=== PATIENT | female | born 1985 | race Caucasian/White ===

== ENCOUNTER 2017-05-18 17:21 | Emergency (ER) | payer OTHER, SELFPAY ==
[2017-05-18 17:22] VITALS: BP 126/60; PULSE 98; RESP 16; TEMP 36.5; O2SAT 100; BMI 25.0
[2017-05-18 17:33] VITALS: RESP 16
[2017-05-18] MEDS: 0.9% Normal Saline 1,000 ML 1000 ML IV (17:55)
[2017-05-18] MEDS: Ondansetron 4 MG/2 ML Vial IV (17:55)
[2017-05-18 18:11] LABS: Absolute Lymphocyte Count 0.44 X10^3/ul (0.83-4.51); Basophil# 0.01 X10^3/uL; Basophil% 0.1 % (0-1); Eosinophil# 0.02 X10^3/uL; Eosinophils% 0.2 % (0-5); Hematocrit 42.5 % (37-47); Hemoglobin 14.9 g/dl (12.0-15.0); Lymphocyte # 0.44 X10^3/ul (4.0); Lymphocyte % 3.7 % (19-41); Mean Corp Hgb Conc 35.1 g/gl (32-36); Mean Corpuscular Hgb 30.9 pg (27.0-32.0); Mean Corpuscular Volume 88.2 fL (81-99); Mean Platelet Vol. 11.5 fl (6.2-12.0); Monocyte# 0.49 X10^3/uL; Monocyte% 4.1 % (0-10); Neutrophil # 11.02 X10^3/uL (2.7-7.7); Neutrophil % 91.7 % (47-70); Platelet Count 168 K/mm3 (150-450); RBC Distribution Width CV 11.9 % (11.6-14.6); RBC Distribution Width SD 37.4 fl (35.1-43.9); Red Blood Count 4.82 M/mm3 (4.2-5.4)
[2017-05-18 18:19] LABS: Anion Gap 9 (5-15); BUN 13 mg/dL (7-18); BUN/Creat Ratio 15.3 RATIO (10-20); Calcium,Total 8.9 mg/dL (8.5-10.1); Chloride 102 mmol/L (98-107); Creatinine, Serum 0.85 mg/dL (0.55-1.02); EST Glomerular Filtration Rate 84 mL/min (>60); Est Glom Filt Rate - Afr Amer 101 mL/min (>60); Estimated Creatinine Clearance 94.97 ml/min; Glucose 111 mg/dL (70-110); Potassium 3.9 mmol/L (3.5-5.1); Sodium Level 135 mmol/L (136-145)
[2017-05-18 18:24] LABS: Differential Indicated SCAN CRITERIA MET; POSITIVE COUNT NO; POSITIVE DIFFERENTIAL YES; POSITIVE MORPHOLOGY NO
[2017-05-18 18:27] LABS: Differential Comment SCANNED
--- NOTE | 2017-05-18 19:00 | ED.DCSUM_ITS ---
- ER Visit Summary Date of Service: 05/18/17 Chief Complaint: Nausea and vomiting History of Present Illness: The patient is a 31 F who is currently 8 weeks . Patient was sent over by her OBs office for IV fluids. She has had nausea and vomiting for the past 3 days. She has noted that she is not urinating as frequently. She has had some mild chills but no fever. She denies cough or congestion. Physical Examination: Vital signs are unremarkable. Patient sitting upright in bed no acute distress. Head and neck examination is normal. Heart is regular rate and rhythm. Palpable pulses are noted throughout. Lungs are clear with good air movement throughout. Abdomen is soft and nontender. Hypoactive bowel sounds are noted. Extremity examination is unremarkable with full range of motion. Neurologic examination reveals no focal deficits. Test Results: CBC was a white count 12.0 with 91% neutrophils. Chemistry studies are unremarkable. Patient reports her urine was checked at the office and was noted of ketones but no sign of infection. Emergency Department Course and Treatment: Patient was given a liter of IV fluids and Zofran here. On repeat evaluation she feels significantly improved. She is tolerating p.o. She be given a prescription for Zofran. Treatment Plan: [] Disposition: Discharge Impression: 1. Vomiting, improved 2. First trimester This note was generated with [employer] dictation software. It may contain incorrect words, spelling, and punctuation that were not noted in review of the chart prior to signing ED Disposition - Plan for ED Patient: Disposition: Home or Assisted Living Chief Complaint: Nausea/Vomiting Instructions: ED Nausea Vomiting Prescriptions: Ondansetron [Zofran Odt] 4 mg PO Q8H PRN PRN #10 tablet PRN Reason: Nausea Referrals: Nicole Eid [STAFF PHYSICIAN] - 3-5 Days if not improving Scooter Aldana [Primary Care Provider] -
--- NOTE | 2017-05-18 19:00 | ED.DEP ---
ED Disposition - Plan for ED Patient: Disposition: Home or Assisted Living Chief Complaint: Nausea/Vomiting Instructions: ED Nausea Vomiting Prescriptions: Ondansetron [Zofran Odt] 4 mg PO Q8H PRN PRN #10 tablet PRN Reason: Nausea Referrals: Scooter Aldana [Primary Care Provider] - Nicole Eid [STAFF PHYSICIAN] - 3-5 Days if not improving
[2017-05-18 19:15] VITALS: BP 117/75; PULSE 71; RESP 16; O2SAT 100
--- NOTE | 2017-05-18 19:25 | ED.RN ---
REVIEWED D/C INSTRUCTIONS, FOLLOW UP CARE, PRESCRIPTION, AND S/S THAT WOULD WARRANT A RETURN TO THE ED WITH PT. PT VERBALIZED AN UNDERSTANDING AND DENIES FURTHER QUESTIONS FOR THIS RN. PT SKIN P/W/D, RESP EVEN AND UNLABORED, PT A&O X 3, NO DISTRESS NOTED. PT AMBULATED OUT OF ED, GAIT STEADY.
== END 2017-05-18 19:26 | disposition home or self-care (01) ==
PROVIDERS: Emergency Provider Emergency Medicine; Family Provider Physician Assistant; PCP Physician Assistant
DX: O26.891 Other specified pregnancy related conditions, first trimester (principal); R11.2 Nausea with vomiting, unspecified; Z3A.08 8 weeks gestation of pregnancy; Z79.899 Other long term (current) drug therapy
CPT/HCPCS: 80048; 85025; 96361; 96374; 99283; J7030; A4216; J2405

== ENCOUNTER → 2017-10-26 12:40 | Outpatient (CLI) | payer OTHER, SELFPAY ==
--- NOTE | 2017-10-26 12:50 | ECHOD_ITS ---
Reason For Study: PVC Procedure This was a 2D Doppler, Color Flow transthoracic echocardiogram. Exam performed in department. Left Ventricle Normal LV size. Left ventricular systolic function is normal. The estimated ejection fraction is 55 %. No evidence for diastolic dysfunction. No regional wall motion abnormalities noted. Right Ventricle Normal RV size. Normal systolic function. Atria The left atrium is mildly enlarged. Normal right atrium. Mitral Valve Normal mitral valve. Tricuspid Valve Normal tricuspid valve. Mild (1+) tricuspid valve insufficiency. Pulmonary artery systolic pressure is 25 mmHg. Aortic Valve Normal aortic valve. Trisinus/trileaflet aortic valve. Great Vessels Normal aortic root. The pulmonary artery is normal size. Normal inferior vena cava. Pericardium/Pleural No pericardial effusion. MMode/2D Measurements & Calculations LVIDd: 5.4 cm IVSd: 0.83 cm Ao root diam: 2.9 cm LVIDs: 3.6 cm LVPWd: 0.88 cm LA dimension: 3.5 cm RVDd: 3.0 cm FS: 32.5 % LAV(MOD-bp): 76.3 ml EDV(MOD-sp4): 142.5 ml SV(MOD-sp4): 82.7 ml LAV(MOD-bp) Indexed: 39.8 ml/m2 ESV(MOD-sp4): 59.8 ml LAV(MOD-sp2): 59.7 ml EF(MOD-sp4): 58.0 % LAV(MOD-sp4): 74.3 ml LA A4 area: 25.1 cm2 RA A4 area: 19.2 cm2 Time Measurements MV dec time: 0.30 sec Doppler Measurements & Calculations MV E max elgin: 76.6 cm/sec Lat Peak E' Elgin: 18.6 cm/sec Med Peak E' Elgin: 12.4 cm/sec MV A max elgin: 51.8 cm/sec E/E' lat: 4.1 E/E' med: 6.2 MV E/A: 1.5 Ao V2 max: 193.0 cm/sec LV V1 max: 141.3 cm/sec PA V2 max: 121.8 cm/sec Ao max P.9 mmHg LV V1 max P.0 mmHg PI end-d elgin: 75.1 cm/sec TR max elgin: 237.6 cm/sec TR max P.6 mmHg Interpretation Summary Normal LV size. Left ventricular systolic function is normal. The estimated ejection fraction is 55 %. No evidence for diastolic dysfunction. Mild (1+) tricuspid valve insufficiency. Cardiac dysrhytmia noted. Ordering Physician: Raleigh Carmona Referring Physician: Raleigh Carmona Performed By: Mallorie Helms RDCS
== END ==
PROVIDERS: Visit Provider Internal Medicine Cardiovascular Disease
DX: I49.3 Ventricular premature depolarization (principal)
CPT/HCPCS: 93225; 93226; 93306

== ENCOUNTER 2017-12-18 23:50 | Outpatient (CLI) | payer OTHER, SELFPAY ==
[2017-12-19 00:08] VITALS: BMI 29.0
[2017-12-19 00:47] LABS: ROM Internal Control Test YES-OK TO RESULT pt. (Internal QC)
[2017-12-19 00:48] LABS: ROM Patient Test Negative (Negative)
--- NOTE | 2017-12-26 10:53 | OB.TRI.NOTE ---
History of Present Illness Date of Service: 12/19/17 Was patient seen by the physician?: No Reason For Visit: R/O LABOR Allergies No Known Allergies Allergy (Verified 12/19/17 00:09) - Pertinent Past Medical History Medical History: Past Medical History (Last Reviewed 08/18/17 @ 13:53 by Raleigh Carmona MD) Hypothyroidism (Chronic) Cardiac dysrhythmia, unspecified (Acute) Palpitations (Acute) Premature ventricular contraction (Acute) Nonrheumatic tricuspid (valve) insufficiency (Chronic) Surgical History: Past Surgical History (Last Reviewed 08/18/17 @ 13:53 by Raleigh Carmona MD) History of removal of cyst NST - FHR Rate Baby A Baseline: 130 Variability:: Moderate Accelerations:: 15 x 15 Decelerations:: Variable NST Reactive:: Yes Uterine Activity:: Irregular Impression/Plan Reactive NST for false labor
== END 2017-12-19 01:20 | disposition home or self-care (01) ==
LOC: WPOUT 12-19 00:18 → WP 12-19 00:19
PROVIDERS: Visit Provider Obstetrics & Gynecology
DX: O47.9 False labor, unspecified (principal); Z3A.00 Weeks of gestation of pregnancy not specified
CPT/HCPCS: 59025; 59050; 84112; 99218; G0378

== ENCOUNTER 2017-12-28 15:25 | Inpatient (IN) | payer OTHER, SELFPAY ==
[2017-12-28 15:34] VITALS: BMI 29.2
[2017-12-28] MEDS: Lactated Ringers 1,000 ML 50 ML IV (15:45)
[2017-12-28 16:24] LABS: Hematocrit 37.4 % (37-47); Hemoglobin 12.6 g/dl (12.0-15.0); Mean Corp Hgb Conc 33.7 g/gl (32-36); Mean Corpuscular Hgb 31.3 pg (27.0-32.0); Mean Corpuscular Volume 92.8 fL (81-99); Mean Platelet Vol. 12.3 fl (6.2-12.0); Platelet Count 138 K/mm3 (150-450); RBC Distribution Width CV 12.4 % (11.6-14.6); RBC Distribution Width SD 41.8 fl (35.1-43.9); Red Blood Count 4.03 M/mm3 (4.2-5.4); White Blood Count 8.3 K/mm3 (4.4-11.0)
[2017-12-28 16:30] LABS: Scan Indicated on CBC? Y/N NO
[2017-12-28] MEDS: Oxytocin 30 units/NS 500 ml 30 UNITS/500 ML IV.SOLN 334 UNITS IV (17:08)
[2017-12-28] MEDS: HYDROmorphone 1 MG/ML Syringe IV (17:30)
[2017-12-28] MEDS: Oxytocin 30 units/NS 500 ml 30 UNITS/500 ML IV.SOLN 167 UNITS IV (17:35)
--- NOTE | 2017-12-28 18:29 | HP.PCM_ITS ---
- Problem List (1) Active labor Status: Acute History Date of Admission: 12/28/17 Final COLLIN: 12/28/17 Final COLLIN Source: US <20 weeks Gestational age: 40 Weeks and 0 Days History of this : This is a 32 year-old at 40w0d who presented to the office for a routine visit with regular painful contractions. Her cervix was found to be 6/80/-2 with bulging bag of membranes in the office. The patient was then sent over to labor and delivery given active labor. Medical History: Medical History (Last Reviewed 08/18/17 @ 13:53 by Raleigh Carmona MD) Hypothyroidism (Chronic) E03.9 Cardiac dysrhythmia, unspecified (Acute) I49.9 Palpitations (Acute) R00.2 Premature ventricular contraction (Acute) I49.3 Nonrheumatic tricuspid (valve) insufficiency (Chronic) I36.1 Surgical History: Surgical History (Last Reviewed 08/18/17 @ 13:53 by Raleigh Carmona MD) History of removal of cyst Z98.890 Allergies No Known Allergies Allergy (Verified 12/19/17 00:09) Home Medications: Home Medications Vits [Prenatabs FA ] 1 tab PO DAILY 12/28/13 levothyroxine 125 mcg capsule 125 mcg PO QDAY cap 07/24/17 Smoking Status: Never smoker Alcohol: None Number of Fetus(es): 1 Heart Tracing: Category 1 History Past Pregnancies: Past Pregnancies Delivery Date Name GA/Weeks Outcome Route Weight Infant Gender Labor Length Anesthesia Delivery Location Provider FOB term 7lb term 7lb Labs: GBS pos, Rh pos, RI, HepB neg, HIV NR Expected Delivery Method: Spontaneous Vaginal Review of Systems Constitutional: Denies: Fever Gastrointestinal: Denies: Abdominal Pain Gynecological: Reports: - - No VB, LOF Physical Exam General: Alert, Oriented x3 HEENT: Atraumatic Abdomen: Soft, Non Tender, Gravid Neurological: Neuro grossly intact 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 She was sent over to labor and delivery for management of active labor. Known GBS bacteria so penicillin started. Epidural prn for pain control. Expectant management to allow for antibiotic time given GBS positive status.
--- NOTE | 2017-12-28 18:30 | PCM.OB.VAG ---
- Problem List (1) Active labor Status: Acute Vaginal Delivery Maternal Presentation: Active Labor Amniotic Membrane Rupture Type: Artificial Amniotic Fluid Description: Clear Final COLLIN: 12/28/17 Gestational age: 40 Weeks and 0 Days Date of Procedure: 12/28/17 Pre-Operative Diagnosis: active labor Post-Operative Diagnosis: active labor Surgery/ Procedure Performed: Spontaneous Vaginal Delivery Type of Anesthesia: Local with 1% lidocaine Description of Procedure: Patient progressed quickly in labor. Was complete and pushing prior to complete antibiotic time. Patient pushing and amniotomy performed for clear fluid. Head, anterior shoulder, and posterior shoulder delivered without force or delay. Nuchal cord x 1. Viable male delivered and placed on mother's abdomen. Cord was clamped and cut after 60nd delay. Placenta was delivered with gentle fundal massage and maternal pushing. Placenta was noted to be intact. Rectal exam was performed, and a 4th degree laceration noted. 1% lidocaine was injected. The apex of the rectal mucosa was identified and closed in a running fashion using 3-0 chromic. The external anal sphincter was then identified, and closed with 3-0 vicryl using 4 interrupted sutures in an end-to-end fashion. The remaining 2nd degree laceration was repaired in usual fashion with 3-0 vicryl. Fundus firm and bleeding hemostatic. EBL 400 cc. Presentation: Vertex Placental Delivery Description: Spontaneous Cord Vessel Description: 3 Vessels Cord Entanglement: Around neck x 1, loose Estimated Blood Loss: 400 Infant A gender: Male Laceration: 4th Degree Medications given after delivery: IV Pitocin
--- NOTE | 2017-12-28 18:38 | OP.PCM_ITS ---
- Problem List (1) Active labor Status: Acute Vaginal Delivery Maternal Presentation: Active Labor Amniotic Membrane Rupture Type: Artificial Amniotic Fluid Description: Clear Final COLLIN: 12/28/17 Gestational age: 40 Weeks and 0 Days Date of Procedure: 12/28/17 Pre-Operative Diagnosis: active labor Post-Operative Diagnosis: active labor Surgery/ Procedure Performed: Spontaneous Vaginal Delivery Type of Anesthesia: Local with 1% lidocaine Description of Procedure: Patient progressed quickly in labor. Was complete and pushing prior to complete antibiotic time. Patient pushing and amniotomy performed for clear fluid. Head, anterior shoulder, and posterior shoulder delivered without force or delay. Nuchal cord x 1. Viable male delivered and placed on mother's abdomen. Cord was clamped and cut after 60nd delay. Placenta was delivered with gentle fundal massage and maternal pushing. Placenta was noted to be intact. Rectal exam was performed, and a 4th degree laceration noted. 1% lidocaine was injected. The apex of the rectal mucosa was identified and closed in a running fashion using 3-0 chromic. The external anal sphincter was then identified, and closed with 3-0 vicryl using 4 interrupted sutures in an end-to- end fashion. The remaining 2nd degree laceration was repaired in usual fashion with 3-0 vicryl. Fundus firm and bleeding hemostatic. EBL 400 cc. Presentation: Vertex Placental Delivery Description: Spontaneous Cord Vessel Description: 3 Vessels Cord Entanglement: Around neck x 1, loose Estimated Blood Loss: 400 A gender: Male Laceration: 4th Degree Medications given after delivery: IV Pitocin
[2017-12-28] MEDS: Ibuprofen 600 MG Tablet PO (20:21)
[2017-12-28] MEDS: Dibucaine 30 GM Tube 1 APPLIC TOPICAL (20:23)
[2017-12-28] MEDS: Ondansetron 4 MG/2 ML Vial IV (20:23)
[2017-12-28] MEDS: 0.9% Saline Lock 10 ML Syringe IV (20:23)
[2017-12-28] MEDS: Docusate Sodium 100 MG Capsule PO (22:32)
[2017-12-29 00:50] VITALS: BP 114/65; PULSE 40; RESP 18; TEMP 36.4
[2017-12-29 04:00] VITALS: BP 121/59; PULSE 41; RESP 18; TEMP 36.3
[2017-12-29] MEDS: Ibuprofen 600 MG Tablet PO ×4 (04:00→22:00)
--- NOTE | 2017-12-29 04:26 | PCM.DCVAG ---
Discharge Diet: No Restrictions Discharge Activity: Return to Normal Activity, May not drive while taking narcotic pain medications., May Shower May resume sexual activity in: 6 weeks Weight Bearing Status: Weight bearing as tolerated Call your doctor if you observe: Fever of 101 or Higher, Inability to urinate, Inability to have a bowel movement, Using more than one pad per hour, Shortness of breath, Chest pain, Calf discomfort, Uncontrolled pain Additional Instructions: Continue to take stool softeners for 6 weeks. Take Colace 100mg twice daily. You can also take Miralax once daily. If you experience any of the following, contact your healthcare provider. Bleeding that soaks a pad every hour for 2 hours Fever 100.4 or higher Unrelieved incision or abdominal pain Swelling, redness, discharge or bleeding from your incision or episiotomy site Your incision begins to separate Problems urinating (including inability to urinate or burning while urinating). Visual changes Severe headache Flu-like symptoms Pain or redness in one of both of your breasts Pain, warmth, tenderness or swelling in your legs, especially the calf area Frequent nausea and vomiting Symptoms of depression or anxiety If you experience any of the following, call 911 or go to the nearest Emergency Room. Chest pain Problems breathing Seizure activity Partial or complete paralysis of a body part, slurred speech, weakness or drooping of the face, or a sudden inability to walk or hold your balance Allergies/Adverse Reactions: Allergies No Known Allergies Allergy (Verified 12/19/17 00:09) Medications to take at Discharge Vits [Prenatabs FA ] 1 tab PO DAILY 12/28/13 levothyroxine 125 mcg capsule 125 mcg PO QDAY cap 07/24/17 When: Follow up in 2 weeks and 6 weeks for visits. Primary Care Physician: Care Physician,No Primary [Primary Care Provider] - Test Results: Test results from this visit will be discussed in further detail at your follow-up appointment, if applicable.
--- NOTE | 2017-12-29 04:30 | DCINST_ITS ---
Discharge Diet: No Restrictions Discharge Activity: Return to Normal Activity, May not drive while taking narcotic pain medications., May Shower May resume sexual activity in: 6 weeks Weight Bearing Status: Weight bearing as tolerated Call your doctor if you observe: Fever of 101 or Higher, Inability to urinate, Inability to have a bowel movement, Using more than one pad per hour, Shortness of breath, Chest pain, Calf discomfort, Uncontrolled pain Additional Instructions: Continue to take stool softeners for 6 weeks. Take Colace 100mg twice daily. You can also take Miralax once daily. If you experience any of the following, contact your healthcare provider. * Bleeding that soaks a pad every hour for 2 hours * Fever 100.4 or higher * Unrelieved incision or abdominal pain * Swelling, redness, discharge or bleeding from your incision or episiotomy site * Your incision begins to separate * Problems urinating (including inability to urinate or burning while urinating) . * Visual changes * Severe headache * Flu-like symptoms * Pain or redness in one of both of your breasts * Pain, warmth, tenderness or swelling in your legs, especially the calf area * Frequent nausea and vomiting * Symptoms of depression or anxiety If you experience any of the following, call 911 or go to the nearest Emergency Room. * Chest pain * Problems breathing * Seizure activity * Partial or complete paralysis of a body part, slurred speech, weakness or drooping of the face, or a sudden inability to walk or hold your balance Allergies/Adverse Reactions: Allergies No Known Allergies Allergy (Verified 12/19/17 00:09) Medications to take at Discharge Vits [Prenatabs FA ] 1 tab PO DAILY 12/28/13 levothyroxine 125 mcg capsule 125 mcg PO QDAY cap 07/24/17 When: Follow up in 2 weeks and 6 weeks for visits. Primary Care Physician: Care Physician,No Primary [Primary Care Provider] - Test Results: Test results from this visit will be discussed in further detail at your follow- up appointment, if applicable.
--- NOTE | 2017-12-29 07:01 | PN.OBGYN_ITS ---
Patient Problems: Active and Suspected Problems (Last Reviewed 08/18/17 @ 13:53 by Raleigh Carmona MD ) Active labor (Acute) Subjective: Patient doing well. Pain controlled. Had dinner last night with some nausea, no emesis. Nausea now resolved. Normal lochia. Ambulating and voiding without difficulty. Denies fevers, CP, SOB, lightheadedness, calf pain. - Physical Exam General: Alert, Oriented x3 HEENT: Atraumatic Lungs: - - No increased resp effort Abdomen: Soft, Non Tender, - - Fundus firm at U Extremities: No Calf Tenderness Skin: No rashes Neurological: Neuro grossly intact Psych/Mental Status: Normal Affect Vital Signs Temp Pulse Resp BP 97.3 F L 41 L 18 121/59 H 12/29/17 04:00 12/29/17 04:00 12/29/17 04:00 12/29/17 04:00 Weight: 186 lb 8.177 oz Body Mass Index (BMI) 29.2 Intake and Output for Last 24 Hours 12/27/17 12/28/17 12/29/17 23:59 23:59 23:59 Intake Total 1456 / 1456 Output Total 600 / 600 Balance 1456 / 1456 -600 / -600 Laboratory Tests Past 24 Hrs 12/28/17 12/28/17 15:45 15:45 WBC 8.3 RBC 4.03 L Hgb 12.6 Hct 37.4 MCV 92.8 MCH 31.3 MCHC 33.7 RDW 12.4 RDW Differential 41.8 Plt Count 138 L MPV 12.3 H Blood Type B POSITIVE Antibody Screen NEGATIVE Medical Necessity - Tobacco Use Smoking Status: Never smoker Assessment/Plan All Active Problems (Last Reviewed 08/18/17 @ 13:53 by Raleigh Carmona MD) Active labor (Acute) Cardiac dysrhythmia, unspecified (Acute) Palpitations (Acute) Premature ventricular contraction (Acute) day #1 s/p after presenting in active labor. - Doing well - AF, VSS - - Reviewed importance of stool softeners with 4th degree tear, as well as home care. Discussed risk for incontinence of stool and/or flatulence. Will send rx for oxycodone given degree of laceration - Dispo: Pt would prefer to stay another day. Routine care. D/c home tomorrow if stable
[2017-12-29 08:05] VITALS: BP 121/87; PULSE 77; RESP 17; TEMP 36.2; O2SAT 98
[2017-12-29] MEDS: Levothyroxine 125 MCG Tablet PO (08:08)
[2017-12-29] MEDS: Docusate Sodium 100 MG Capsule PO ×2 (10:01→22:02)
[2017-12-29] MEDS: Polyethylene Glycol 3350 17 GM PACKET PO (10:01)
[2017-12-29 11:40] VITALS: BP 111/70; PULSE 71; RESP 16; TEMP 36.4; O2SAT 98
[2017-12-29] MEDS: Sertraline 50 MG Tablet 25 MG PO (15:06)
[2017-12-29 15:45] VITALS: BP 104/63; PULSE 79; RESP 15; TEMP 36.4; O2SAT 98
[2017-12-29 20:15] VITALS: BP 125/77; PULSE 42; RESP 16; TEMP 36.6
[2017-12-30 02:00] VITALS: BP 116/70; PULSE 48; RESP 16; TEMP 36.1
[2017-12-30] MEDS: Ibuprofen 600 MG Tablet PO ×2 (04:15→10:51)
[2017-12-30] MEDS: Levothyroxine 125 MCG Tablet PO (07:16)
[2017-12-30 08:00] VITALS: BP 126/81; PULSE 78; RESP 16; TEMP 36.6; O2SAT 99
[2017-12-30] MEDS: Polyethylene Glycol 3350 17 GM PACKET PO (08:47)
[2017-12-30] MEDS: Docusate Sodium 100 MG Capsule PO (08:47)
[2017-12-30] MEDS: Sertraline 50 MG Tablet 25 MG PO (08:47)
--- NOTE | 2017-12-30 13:09 | PN.OBGYN_ITS ---
Patient Problems: Active and Suspected Problems (Last Reviewed 08/18/17 @ 13:53 by Raleigh Carmona MD ) Active labor (Acute) Subjective: pain well controlled, average lochia. Stool softeners are helping. going well. - Physical Exam General: Alert, Cooperative, No apparent distress Vital Signs Temp Pulse Resp BP Pulse Ox 97.9 F 78 16 126/81 H 99 12/30/17 08:00 12/30/17 08:00 12/30/17 08:00 12/30/17 08:00 12/30/17 08:00 Oxygen Delivery Method Room Air Weight: 84.6 kg Body Mass Index (BMI) 29.2 Intake and Output for Last 24 Hours 12/28/17 12/29/17 12/30/17 23:59 23:59 23:59 Intake Total 1456 / 1456 Output Total 600 / 600 Balance 1456 / 1456 -600 / -600 Medical Necessity - Tobacco Use Smoking Status: Never smoker Assessment/Plan All Active Problems (Last Reviewed 08/18/17 @ 13:53 by Raleigh Carmona MD) Active labor (Acute) Cardiac dysrhythmia, unspecified (Acute) Palpitations (Acute) Premature ventricular contraction (Acute) PPD#2 s/p w/ 4th degree laceration ready for d/c home. D/w her stool softener use. F/u in office in 1-2 and 6 weeks or prn
[2017-12-30 14:00] VITALS: BP 120/70; PULSE 74; RESP 17; TEMP 36.7; O2SAT 99
== END 2017-12-30 14:35 | disposition home or self-care (01) | DRG 774 ==
PROVIDERS: Admitting Provider Obstetrics & Gynecology; Visit Provider Obstetrics & Gynecology
DX: O48.0 Post-term pregnancy (principal); O98.82 Other maternal infectious and parasitic diseases complicating childbirth; O70.4 Anal sphincter tear complicating delivery, not associated with third degree laceration; Z3A.40 40 weeks gestation of pregnancy; O99.284 Endocrine, nutritional and metabolic diseases complicating childbirth; E03.9 Hypothyroidism, unspecified; B95.1 Streptococcus, group B, as the cause of diseases classified elsewhere; O69.81X0 Labor and delivery complicated by cord around neck, without compression, not applicable or unspecified; Z37.0 Single live birth; Z79.899 Other long term (current) drug therapy
CPT/HCPCS: 59050; 85027; 86850; 86900; 99218; J7120; A4216; G0378; J2405

== ENCOUNTER → 2018-02-21 11:07 | Outpatient (CLI) | payer OTHER, SELFPAY | PROVIDERS: Referring Provider Internal Medicine Cardiovascular Disease; Visit Provider Internal Medicine Cardiovascular Disease | DX: I49.3 Ventricular premature depolarization (principal) | CPT/HCPCS: 93225; 93226 ==

== ENCOUNTER → 2018-09-18 | Outpatient (CLI) | payer OTHER, SELFPAY ==
[2018-09-13 10:38] VITALS: BMI 25.0
== END | disposition home or self-care (01) ==
LOC: PSN 10:57
PROVIDERS: Referring Provider Internal Medicine Cardiovascular Disease; Visit Provider Internal Medicine Cardiovascular Disease
DX: I49.3 Ventricular premature depolarization (principal); R00.2 Palpitations; I49.9 Cardiac arrhythmia, unspecified; E03.9 Hypothyroidism, unspecified; I36.1 Nonrheumatic tricuspid (valve) insufficiency
CPT/HCPCS: 93225; 93226

== ENCOUNTER → 2019-05-17 | Outpatient (CLI) | payer OTHER, SELFPAY ==
[2019-04-26 08:04] VITALS: BMI 25.3
== END | disposition home or self-care (01) ==
LOC: PSN 12:49
PROVIDERS: Referring Provider Internal Medicine Cardiovascular Disease; Visit Provider Internal Medicine Cardiovascular Disease
DX: I49.3 Ventricular premature depolarization (principal)
CPT/HCPCS: 93225; 93226

== ENCOUNTER 2019-06-15 18:28 | Emergency (ER) | payer OTHER, SELFPAY ==
[2019-04-26 08:04] VITALS: BMI 25.3
[2019-06-15 18:28] VITALS: BP 136/90; PULSE 108; RESP 18; TEMP 38.8; O2SAT 99; BMI 25.0
--- NOTE | 2019-06-15 18:44 | RAD_ITS ---
STUDY: X-RAY CHEST REASON FOR EXAM: Female, 33 years old. COUGH AND FEVER x 4 DAYS. TECHNIQUE: Frontal and lateral views of the chest COMPARISON: None. FINDINGS: The lungs are clear and expanded. There is no demonstrated pleural abnormality. Normal size heart. Normal mediastinum and meghann. Normal visualized pulmonary arteries. Normal visualized aortic arch and descending thoracic aorta. Normal visualized thoracic spine. Normal visualized ribs, clavicles, and shoulders. There is no demonstrated abnormality of the visualized soft tissue structures of the upper abdomen. RAD/Chest PA and Lateral IMPRESSION: Normal x-ray examination of the chest. Electronically Signed: German Oliva, at 19:07 EST Tel , Service support ,
[2019-06-15] MEDS: Ibuprofen 600 MG Tablet PO (18:55)
--- NOTE | 2019-06-15 19:20 | ED.DCSUM_ITS ---
- ER Visit Summary Date of Service: 06/15/19 Chief Complaint: Cough History of Present Illness: The patient is a 33 F who sees Samantha Fink. She reports she has a cough began 3 days ago. Stepped subjective fever and chills. She was sore throat 6 out of 10 in severity. Cough is nonproductive. She denie s any chest pain or difficulty breathing. She does complain of diffuse myalgias and a headache is 6 out of 10 in severity. She did not get a flu shot this year. Physical Examination: Vitals: Stable. Afebrile. General: Well-nourished and well-developed. Head: Normocephalic atraumatic. Neck: Supple, no lymphadenopathy. No JVD. Nontender. Cardiovascular: Regular rate and rhythm. No murmurs. Respiratory: No respiratory distress. Clear to auscultation bilaterally. Abdominal: Soft, nontender, nondistended, normal bowel sounds. No guarding, rebound, or peritoneal signs. Back: Nontender. Extremities: Nontender, no edema. Skin: Normal color, no rash. Neurologic: Alert and oriented ?3. Cranial nerves II through XII are intact. Normal strength and sensation. Psych: Normal affect. Test Results: Chest x-ray shows no acute disease Emergency Department Course and Treatment: Patient was treated with ibuprofen. She is resting comfortably. She refused an IV. Treatment Plan: Clinically patient has influenza. She does not want Tamiflu. She will be discharged with symptomatic care. Push fluids. Alternate Tylenol and ibuprofen for fever and myalgias. Follow-up with her primary care physician in 1 week if not improving. Return to the emergency department for any worsening symptoms. Disposition: To home in improved and stable condition. Impression: 1. Influenza. This note was generated with [employer] dictation software. It may contain incorrect words, spelling, and punctuation that were not noted in review of the chart prior to signing ED Disposition - Plan for ED Patient: Disposition: Home or Assisted Living Instructions: INFLUENZA (Adult) Referrals: Samantha Fink DO [Primary Care Provider] - 1 Week if not improving
== END 2019-06-15 19:32 | disposition home or self-care (01) ==
LOC: ED 18:56
PROVIDERS: Emergency Provider Emergency Medicine
DX: J11.1 Influenza due to unidentified influenza virus with other respiratory manifestations (principal)
CPT/HCPCS: 71046; 99283

== ENCOUNTER → 2019-10-14 | Outpatient (CLI) | payer OTHER, SELFPAY ==
[2019-10-14 14:35] VITALS: BMI 24.5
[2019-10-14 17:02] LABS: Absolute Lymphocyte Count 1.91 X10^3/uL (0.83-4.51); Absolute Neutrophil Count 3.9 X10^3/uL (2.0-7.7); Basophil# 0.02 X10^3/uL; Basophil% 0.3 % (0-1); Eosinophil# 0.07 X10^3/uL; Eosinophils% 1.1 % (0-5); Hematocrit 42.4 % (37-47); Hemoglobin 14.1 g/dL (12.0-15.0); Lymphocyte # 1.91 X10^3/ul (4.0); Mean Corp Hgb Conc 33.3 g/dL (32-36); Mean Corpuscular Hgb 31.3 pg (27.0-32.0); Mean Corpuscular Volume 94.2 fL (81-99); Monocyte# 0.42 X10^3/uL; Monocyte% 6.6 % (0-10); NRBC Flagged by Analyzer 0 % (0-5); Neutrophil # 3.92 X10^3/uL (2.7-7.7); Neutrophil % 61.7 % (47-70); Platelet Count 171 K/mm3 (150-450); RBC Distribution Width CV 11.2 % (11.6-14.6); White Blood Count 6.4 K/mm3 (4.4-11.0)
[2019-10-14 17:15] LABS: Vitamin B12 301 pg/mL (211-911); Vitamin D,25 Hydroxy 58.4 ng/mL
[2019-10-14 17:22] LABS: Ferritin 16 ng/mL (8-252)
== END | disposition home or self-care (01) ==
LOC: BIMLAB 15:32
PROVIDERS: Referring Provider Internal Medicine Endocrinology, Diabetes & Metabolism; Visit Provider Internal Medicine Endocrinology, Diabetes & Metabolism
DX: E03.8 Other specified hypothyroidism (principal); E06.3 Autoimmune thyroiditis; K90.9 Intestinal malabsorption, unspecified; E55.9 Vitamin D deficiency, unspecified; E61.1 Iron deficiency
CPT/HCPCS: 36415; 82306; 82607; 82728; 84439; 84443; 85025

== ENCOUNTER → 2020-02-14 | Outpatient (CLI) | payer OTHER, SELFPAY ==
[2020-01-23 14:11] VITALS: BMI 24.1
--- NOTE | 2020-02-14 14:09 | ECHOD_ITS ---
Reason For Study: Dyspnea/SOB Procedure This was a 2D Doppler, Color Flow transthoracic echocardiogram. Exam performed in department. Left Ventricle Normal LV size. The estimated ejection fraction is 50 %. Left ventricular systolic function is lower limits of normal. No regional wall motion abnormalities noted. Right Ventricle Normal RV size. Normal systolic function. Atria Normal left atrium. Normal right atrium. Mitral Valve Bileaflet diffuse mitral valve thickening. Tricuspid Valve Normal tricuspid valve. Aortic Valve Normal aortic valve. Trisinus/trileaflet aortic valve. Pulmonic Valve Normal pulmonic valve. Great Vessels Normal aortic root. The pulmonary artery is normal size. Normal inferior vena cava. Pericardium/Pleural No pericardial effusion. MMode/2D Measurements & Calculations LVIDd: 5.0 cm IVSd: 0.77 cm Ao root diam: 3.0 cm LVIDs: 3.1 cm LVPWd: 0.81 cm LA dimension: 3.7 cm RVDd: 4.1 cm FS: 39.3 % LAV(MOD-bp): 68.9 ml LA A4 area: 22.1 cm2 RA A4 area: 16.9 cm2 LAV(MOD-bp) Indexed: 38.5 ml/m2 LAV(MOD-sp2): 64.7 ml LAV(MOD-sp4): 63.2 ml Time Measurements MV dec time: 0.38 sec Doppler Measurements & Calculations MV E max elgin: 75.5 cm/sec Lat Peak E' Elgin: 19.1 cm/sec Med Peak E' Elgin: 17.3 cm/sec MV A max elgin: 41.5 cm/sec E/E' lat: 3.9 E/E' med: 4.4 MV E/A: 1.8 MV V2 max: 86.1 cm/sec MV P1/2t max elgin: 86.1 cm/sec Ao V2 max: 138.9 cm/sec MV max P.0 mmHg MV P1/2t: 105.8 msec Ao max P.7 mmHg MV V2 mean: 37.0 cm/sec MV dec slope: 238.3 cm/sec2 MV mean P.72 mmHg MVA(P1/2t): 2.1 cm2 MV V2 VTI: 34.6 cm LV V1 max: 112.6 cm/sec PA V2 max: 91.5 cm/sec TR max elgin: 276.9 cm/sec LV V1 max P.1 mmHg TR max P.7 mmHg Interpretation Summary Normal LV size. The estimated ejection fraction is 50 %. Left ventricular systolic function is lower limits of normal. Compared to the previous the LV function is mildly worse. Ordering Physician: Raleigh Carmona Referring Physician: Samantha Fink Performed By: Ismael Brian RCS
== END | disposition home or self-care (01) ==
PROVIDERS: Referring Provider Internal Medicine Cardiovascular Disease; Visit Provider Internal Medicine Cardiovascular Disease
DX: I49.3 Ventricular premature depolarization (principal); R06.00 Dyspnea, unspecified; R06.02 Shortness of breath
CPT/HCPCS: 93306

== ENCOUNTER → 2020-08-25 11:00 | Outpatient (CLI) | payer OTHER, SELFPAY ==
[2020-01-23 14:11] VITALS: BMI 24.1
== END ==
PROVIDERS: Referring Provider Internal Medicine Cardiovascular Disease; Visit Provider Internal Medicine Cardiovascular Disease
DX: I49.49 Other premature depolarization (principal); R00.2 Palpitations; E03.8 Other specified hypothyroidism; E06.3 Autoimmune thyroiditis; Z98.890 Other specified postprocedural states
CPT/HCPCS: 93225; 93226

== ENCOUNTER → 2020-10-01 14:18 | Outpatient (CLI) | payer OTHER, SELFPAY ==
[2020-10-01 14:06] VITALS: BMI 24.1
[2020-10-01 15:03] LABS: Absolute Neutrophil Count 3.2 X10^3/uL (2.0-7.7); Basophil# 0.04 X10^3/uL; Basophil% 0.7 % (0-1); Eosinophil# 0.11 X10^3/uL; Hematocrit 40.2 % (37-47); Hemoglobin 13.4 g/dL (12.0-15.0); Lymphocyte % 31.3 % (19-41); Mean Corp Hgb Conc 33.3 g/dL (32-36); Mean Corpuscular Hgb 30.9 pg (27.0-32.0); Mean Corpuscular Volume 92.6 fL (81-99); Mean Platelet Vol. 11.8 fl (6.2-12.0); Monocyte# 0.36 X10^3/uL; Monocyte% 6.6 % (0-10); NRBC Flagged by Analyzer 0 % (0-5); Neutrophil # 3.21 X10^3/uL (2.7-7.7); Neutrophil % 59.2 % (47-70); Platelet Count 176 K/mm3 (150-450); RBC Distribution Width CV 11.7 % (11.6-14.6); RBC Distribution Width SD 39.5 fl (35.1-43.9); Red Blood Count 4.34 M/mm3 (4.2-5.4); White Blood Count 5.4 K/mm3 (4.4-11.0)
[2020-10-01 15:47] LABS: ALB/GLOB Ratio 1.1 RATIO (0.9-2.4); AST(SGOT) 19 U/L (15-37); Alanine Aminotransfer ALT/SGPT 25 U/L (13-56); Albumin, Serum 3.9 g/dL (3.2-5.0); Alkaline Phosphatase 39 U/L (45-117); Anion Gap 8 (5-15); BUN 16 mg/dL (7-18); Calcium,Total 8.9 mg/dL (8.5-10.1); Chloride 105 mmol/L (98-107); Cholesterol 211 mg/dL (200); Creatinine, Serum 1.14 mg/dL (0.55-1.02); EST Glomerular Filtration Rate 58 mL/min (>60); Est Glom Filt Rate - Afr Amer 71 mL/min (>60); Ferritin 40 ng/mL (8-252); Globulin 3.5 g/dL (2.2-4.2); Glucose 82 mg/dL (74-106); High Density Lipoprotein 82 mg/dL; Potassium 3.8 mmol/L (3.5-5.1); Protein, Total 7.4 g/dL (6.4-8.2); Sodium Level 139 mmol/L (136-145); T4 Free Direct 1.15 ng/dL (0.76-1.46); Thyroid Stim Hormone (TSH) 0.68 uIU/mL (0.358-3.74); Triglycerides 91 mg/dL; Very Low Density Lipoprotein 18 mg/dL (5-40)
[2020-10-01 15:56] LABS: Vitamin B12 836 pg/mL (211-911)
== END ==
PROVIDERS: Referring Provider Internal Medicine Endocrinology, Diabetes & Metabolism; Visit Provider Internal Medicine Endocrinology, Diabetes & Metabolism
DX: E06.3 Autoimmune thyroiditis (principal); E03.8 Other specified hypothyroidism; E53.8 Deficiency of other specified B group vitamins; E61.1 Iron deficiency
CPT/HCPCS: 36415; 80053; 80061; 82607; 82728; 84439; 84443; 85025

== ENCOUNTER → 2020-12-10 12:55 | Outpatient (CLI) | payer OTHER, SELFPAY ==
[2020-10-20 14:24] VITALS: BMI 23.5
--- NOTE | 2020-12-10 12:56 | ECHOD_ITS ---
Reason For Study: ARRHYTHMIA Procedure This was a 2D Doppler, Color Flow transthoracic echocardiogram. Exam performed in department. Left Ventricle Normal LV size. Left ventricular systolic function is normal. The estimated ejection fraction is 55 %. No regional wall motion abnormalities noted. Right Ventricle Normal RV size. Normal systolic function. Atria Normal left atrium. Normal right atrium. Mitral Valve Normal mitral valve. Tricuspid Valve Normal tricuspid valve. Mild tricuspid valve insufficiency. Aortic Valve Normal aortic valve. Trisinus/trileaflet aortic valve. Pulmonic Valve Normal pulmonic valve. Great Vessels Normal aortic root. Pericardium/Pleural No pericardial effusion. MMode/2D Measurements & Calculations LVIDd: 4.9 cm IVSd: 0.71 cm Ao root diam: 2.8 cm LVIDs: 3.3 cm LVPWd: 0.78 cm RVDd: 3.4 cm FS: 32.1 % LAV(MOD-bp): 55.6 ml LVAd ap4: 35.6 cm2 SV(MOD-sp4): 73.6 ml LAV(MOD-bp) Indexed: 31.6 ml/m2 LVLd ap4: 9.0 cm LAV(MOD-sp2): 46.1 ml EDV(MOD-sp4): 118.9 ml LAV(MOD-sp4): 49.3 ml EDV(sp4-el): 119.9 ml LVAs ap4: 19.4 cm2 LVLs ap4: 7.2 cm ESV(MOD-sp4): 45.3 ml ESV(sp4-el): 44.3 ml EF(MOD-sp4): 61.9 % EF(sp4-el): 63.0 % SV(sp4-el): 75.6 ml LA A4 area: 18.8 cm2 LA dimension(2D): 3.0 cm RA A4 area: 14.4 cm2 Time Measurements MV dec time: 0.25 sec Doppler Measurements & Calculations MV E max elgin: 68.0 cm/sec Lat Peak E' Elgin: 19.6 cm/sec Med Peak E' Elgin: 17.5 cm/sec MV A max elgin: 34.0 cm/sec E/E' lat: 3.5 E/E' med: 3.9 MV E/A: 2.0 Ao V2 max: 161.2 cm/sec LV V1 max: 132.0 cm/sec PA V2 max: 88.9 cm/sec Ao max P.5 mmHg LV V1 max P.0 mmHg TR max elgin: 223.2 cm/sec TR max P.9 mmHg ECHO/Echo Complete Interpretation Summary Normal LV size. Left ventricular systolic function is normal. The estimated ejection fraction is 55 %. Mild tricuspid valve insufficiency. Ordering Physician: Raleigh Carmona Referring Physician: NAOMY GILLIAM Performed By: Mallorie Helms RDCS
== END ==
PROVIDERS: Referring Provider Internal Medicine Cardiovascular Disease; Visit Provider Internal Medicine Cardiovascular Disease
DX: Z98.890 Other specified postprocedural states (principal)
CPT/HCPCS: 93225; 93226; 93306

== ENCOUNTER → 2021-03-24 14:33 | Outpatient (CLI) | payer OTHER, SELFPAY ==
[2021-03-24 17:40] LABS: T4 Free Direct 1.12 ng/dL (0.76-1.46); Thyroid Stim Hormone (TSH) 1.66 uIU/mL (0.358-3.74)
== END ==
PROVIDERS: Visit Provider Internal Medicine Endocrinology, Diabetes & Metabolism
DX: E06.3 Autoimmune thyroiditis (principal)
CPT/HCPCS: 36415; 84439; 84443

== ENCOUNTER 2021-06-04 14:07 | Outpatient (CLI) | payer OTHER, SELFPAY ==
[2021-06-04 14:29] LABS: Hematocrit 40.1 % (37-47); Hemoglobin 14.1 g/dL (12.0-15.0); Mean Corp Hgb Conc 35.2 g/dL (32-36); Mean Corpuscular Hgb 31.1 pg (27.0-32.0); Mean Corpuscular Volume 88.5 fL (81-99); Mean Platelet Vol. 11.5 fl (6.2-12.0); Platelet Count 165 K/mm3 (150-450); RBC Distribution Width CV 11.5 % (11.6-14.6); Red Blood Count 4.53 M/mm3 (4.2-5.4); White Blood Count 5.5 K/mm3 (4.4-11.0)
[2021-06-04 14:57] LABS: Anion Gap 6 (5-15); BUN 16 mg/dL (7-18); BUN/Creat Ratio 14.4 RATIO (10-20); Calcium,Total 9.2 mg/dL (8.5-10.1); Chloride 106 mmol/L (98-107); Creatinine, Serum 1.11 mg/dL (0.55-1.02); EST Glomerular Filtration Rate 60 mL/min (>60); Est Glom Filt Rate - Afr Amer 73 mL/min (>60); Glucose 105 mg/dL (74-106); Magnesium 2.1 mg/dL (1.6-2.6); Potassium 3.8 mmol/L (3.5-5.1); Sodium Level 137 mmol/L (136-145)
== END 2021-06-04 23:59 | disposition home or self-care (01) ==
LOC: LAB 14:09
PROVIDERS: Visit Provider Physician Assistant Medical
DX: R00.2 Palpitations (principal); R42 Dizziness and giddiness; R07.89 Other chest pain
CPT/HCPCS: 36415; 80048; 83735; 85027

== ENCOUNTER 2021-06-08 09:07 | Outpatient (CLI) | payer OTHER, SELFPAY | END 2021-06-08 23:59 | disposition home or self-care (01) | LOC: PSN 09:09 | PROVIDERS: Referring Provider Physician Assistant Medical; Visit Provider Physician Assistant Medical | DX: I49.49 Other premature depolarization (principal); R00.2 Palpitations; R07.89 Other chest pain; R42 Dizziness and giddiness; Z98.890 Other specified postprocedural states | CPT/HCPCS: 93225; 93226 ==

== ENCOUNTER → 2022-07-08 | Outpatient (CLI) | payer SELFPAY ==
[2022-07-08 15:02] LABS: T4 Free Direct 1.06 ng/dL (0.76-1.46); Thyroid Stim Hormone (TSH) 2.15 uIU/mL (0.358-3.74)
== END | disposition home or self-care (01) ==
PROVIDERS: Referring Provider Internal Medicine Endocrinology, Diabetes & Metabolism; Visit Provider Internal Medicine Endocrinology, Diabetes & Metabolism
DX: E03.8 Other specified hypothyroidism (principal); E06.3 Autoimmune thyroiditis
CPT/HCPCS: 36415; 84439; 84443

== ENCOUNTER → 2022-09-05 | Outpatient (CLI) | payer SELFPAY | END | disposition home or self-care (01) | PROVIDERS: Referring Provider Internal Medicine Cardiovascular Disease; Visit Provider Internal Medicine Cardiovascular Disease | DX: I49.49 Other premature depolarization (principal) | CPT/HCPCS: 93225; 93226 ==

== ENCOUNTER → 2023-11-14 | Outpatient (CLI) | payer OTHER, SELFPAY | END | disposition home or self-care (01) | LOC: PSN 08:44 | PROVIDERS: PCP Internal Medicine; Referring Provider Internal Medicine Cardiovascular Disease; Visit Provider Internal Medicine Cardiovascular Disease | DX: R00.2 Palpitations (principal); R42 Dizziness and giddiness; R07.89 Other chest pain | CPT/HCPCS: 93225; 93226 ==

== ENCOUNTER → 2023-12-14 | Outpatient (CLI) | payer OTHER, SELFPAY | END | disposition home or self-care (01) | LOC: LABSPEC 11:58 | PROVIDERS: PCP Internal Medicine; Referring Provider Advanced Practice Midwife; Visit Provider Advanced Practice Midwife | DX: Z12.4 Encounter for screening for malignant neoplasm of cervix (principal) | CPT/HCPCS: 87624; 88175; G0145 ==

== ENCOUNTER → 2024-03-11 | Outpatient (CLI) | payer OTHER, SELFPAY ==
[2024-03-11 16:39] LABS: T4 Free Direct 0.97 ng/dL (0.76-1.46)
== END | disposition home or self-care (01) ==
LOC: BIMLAB 14:24
PROVIDERS: PCP Internal Medicine; Referring Provider Advanced Practice Midwife; Visit Provider Advanced Practice Midwife
DX: E03.8 Other specified hypothyroidism (principal); E06.3 Autoimmune thyroiditis
CPT/HCPCS: 36415; 84439; 84443